=== PATIENT | female | born 1980 | race Hispanic/Latino ===

== ENCOUNTER 2017-11-20 05:02 | Emergency (ER) | payer BC, OTHER | END 2017-11-20 05:50 | disposition home or self-care (01) | LOC: EDH 05:02 | DX: S16.1XXA Strain of muscle, fascia and tendon at neck level, initial encounter (principal); E78.5 Hyperlipidemia, unspecified; X58.XXXA Exposure to other specified factors, initial encounter; Y93.89 Activity, other specified; Y92.89 Other specified places as the place of occurrence of the external cause; Y99.8 Other external cause status | CPT/HCPCS: 99281 ==

== ENCOUNTER → 2017-12-08 | Outpatient (CLI) | payer BC | END | disposition home or self-care (01) | LOC: RAH 12:12 | PROVIDERS: ATTEND Internal Medicine | DX: M50.122 Cervical disc disorder at C5-C6 level with radiculopathy (principal); M48.02 Spinal stenosis, cervical region; R29.898 Other symptoms and signs involving the musculoskeletal system | CPT/HCPCS: 72141 ==

== ENCOUNTER → 2018-08-27 | Outpatient (CLI) | payer BC | END | disposition home or self-care (01) | LOC: RAH 08:28 | PROVIDERS: ATTEND Internal Medicine | DX: R10.13 Epigastric pain (principal) | CPT/HCPCS: 76700 ==

== ENCOUNTER 2020-10-09 13:00 | Observation (INO) | payer BC ==
[~2020-10-09] VITALS: Ht 162.6 cm; Wt 75.7 kg
[2020-10-15] MEDS ORDERED: krill oil PO (12:11)
[2020-10-15] MEDS ORDERED: vitamin d3 PO (12:11)
[2020-10-15 12:28] LABS: BASOPHILS % (AUTO) 1.1 % (0.0-5.0); HEMATOCRIT 37.7 % (36-48); LYMPHOCYTES % (AUTO) 29.4 % (21.0-51.0); MEAN CORPUSCULAR HEMOGLOBIN 30.8 pg (27.0-33.0); MEAN CORPUSCULAR HGB CONC 34.7 g/dL (32.0-36.0); MEAN CORPUSCULAR VOLUME 88.5 fL (79-99); MONOCYTES % (AUTO) 5.7 % (3.0-13.0); NEUTROPHILS % (AUTO) 61.6 % (40.0-77.0); PLATELET COUNT (AUTO) 324 K/uL (130-400); RED BLOOD CELL COUNT(AUTO) 4.26 MIL/uL (4.00-5.50); RED CELL DISTRIBUTION WIDTH 11.9 % (11.0-15.5); WHITE BLOOD COUNT (AUTO) 5.4 K/uL (4.8-10.8)
[2020-10-16] VITALS (25 sets, daily range): BP systolic 114–162; BP diastolic 64–98
[2020-10-16] MEDS ORDERED: LACTATED RINGERS 1000ML 1,000 ML IV ONE (05:52)
[2020-10-16] MEDS: CEFAZOLIN SODIUM 1 GM VIAL ONE ×2 (05:57→07:08)
[2020-10-16] MEDS ORDERED: SUCCINYLCHOLINE CHLORIDE 20 MG/ML 10 ML VIAL ONE (06:40)
[2020-10-16] MEDS ORDERED: LIDOCAINE HCL MPF 1% 5ML VIAL ONE (06:40)
[2020-10-16] MEDS ORDERED: FENTANYL CITRATE PF 50 MCG/1 ML 2ML VIAL ONE ×2 (06:41→07:15)
[2020-10-16] MEDS ORDERED: ROCURONIUM 10MG/1ML SYR 10 MG/ML ML ONE ×3 (06:41→07:29)
[2020-10-16] MEDS ORDERED: MIDAZOLAM HCL 1 MG/ML 2ML VIAL ONE (06:41)
[2020-10-16] MEDS ORDERED: PROPOFOL 10 MG/ML 20ML VIAL IV ONE (06:41)
[2020-10-16] MEDS ORDERED: DEXAMETHASONE SOD PHOSPHATE 4 MG/ML 1ML VIAL ONE (08:26)
[2020-10-16] MEDS ORDERED: ONDANSETRON HCL 4 MG/2 ML VIAL ONE (08:26)
[2020-10-16] MEDS ORDERED: MEPERIDINE-PF 25 MG/ML SYG ONE ×2 (09:01→09:12)
[2020-10-16] MEDS ORDERED: IBUPROFEN 600 MG TABLET PO PRN (09:45)
[2020-10-16] MEDS ORDERED: BISACODYL 10 MG SUPP.RECT RC PRN (09:45)
[2020-10-16] MEDS ORDERED: PROMETHAZINE HCL 25 MG/ML 1ML AMPULE IM PRN (09:45)
[2020-10-16] MEDS ORDERED: ONDANSETRON HCL 4 MG/2 ML VIAL IVP PRN (09:45)
[2020-10-16] MEDS: MEPERIDINE-PF 75 MG/ML SYG IM PRN ×3 (09:54→17:33)
[2020-10-16] MEDS: DEXTROSE 5 %-0.45 % NACL 1,000 ML IV PRN ×2 (09:55→17:32)
[2020-10-16] MEDS: PROMETHAZINE HCL 25 MG/ML 1ML AMPULE IM PRN ×3 (09:55→17:33)
[2020-10-16] MEDS: DOCUSATE SODIUM 100 MG CAP PO PRN (20:29)
[2020-10-16] MEDS: SIMETHICONE 80 MG TAB.CHEW PO PRN (20:29)
[2020-10-16] MEDS: ACETAMINOPHEN-CODEINE 300/30MG TAB PO PRN (20:32)
[2020-10-17] MEDS ORDERED: MEPERIDINE-PF 50 MG/ML SYG ONE (01:18)
[2020-10-17] MEDS ORDERED: MEPERIDINE-PF 25 MG/ML SYG ONE (01:19)
[2020-10-17] MEDS: PROMETHAZINE HCL 25 MG/ML 1ML AMPULE IM PRN (01:22)
[2020-10-17] MEDS: DEXTROSE 5 %-0.45 % NACL 1,000 ML IV PRN (01:32)
[2020-10-17 03:50] VITALS: BP 135/75
[2020-10-17 05:38] LABS: HEMATOCRIT 35.3 % (36-48); MEAN CORPUSCULAR HEMOGLOBIN 30.4 pg (27.0-33.0); MEAN CORPUSCULAR HGB CONC 34.6 g/dL (32.0-36.0); RED BLOOD CELL COUNT(AUTO) 4.01 MIL/uL (4.00-5.50); RED CELL DISTRIBUTION WIDTH 11.9 % (11.0-15.5); WHITE BLOOD COUNT (AUTO) 9.7 K/uL (4.8-10.8)
[2020-10-17 07:19] VITALS: BP 161/80
[2020-10-17] MEDS ORDERED: ACETAMINOPHEN-CODEINE 300/30MG TAB PO PRN (09:00)
[2020-10-17] MEDS ORDERED: HYDROCODONE/ACETAMINOPHEN 5/325 MG TAB PO PRN (09:00)
[2020-10-17] MEDS ORDERED: IBUPROFEN 800 MG TAB PO PRN (09:00)
[2020-10-17] MEDS: ACETAMINOPHEN-CODEINE 300/30MG TAB PO PRN (09:08)
[2020-10-17] MEDS: DOCUSATE SODIUM 100 MG CAP PO PRN (09:08)
[2020-10-17] MEDS: SIMETHICONE 80 MG TAB.CHEW PO PRN (09:08)
[2020-10-17] MEDS ORDERED: ACET1TAB25 PO (10:27)
== END 2020-10-17 14:25 | disposition home or self-care (01) ==
LOC: EDSTATUS 13:00 → DAHIP 10-16 05:30 → WSH 10-16 09:40
PROVIDERS: ADMIT Obstetrics & Gynecology; ATTEND Obstetrics & Gynecology
DX: D25.9 Leiomyoma of uterus, unspecified (principal); Z20.822 Contact with and (suspected) exposure to COVID-19
CPT/HCPCS: 36415 ×2; 58292; 84703; 85025; 85027; 86850; 86900; 86901; 96360; 96361 ×2; 96372 ×2; A4215; A4221; A4222; A4223; A4351; A4600; A4606; A4663; A4930; G0378 ×31; J0330; J0690; J1100; J2175 ×7; J2250; J2405; J2550 ×4; J2704; J3010 ×2; J3490; J7120 ×2; U0003

== ENCOUNTER → 2023-02-05 | Outpatient (CLI) | payer BC ==
[~2023-02-05] MED LIST: ACET-2079 PO; krill oil PO; vitamin d3 PO
== END | disposition home or self-care (01) ==
LOC: RAH 12:46
PROVIDERS: ATTEND Internal Medicine
DX: M47.22 Other spondylosis with radiculopathy, cervical region (principal); M48.02 Spinal stenosis, cervical region; M50.122 Cervical disc disorder at C5-C6 level with radiculopathy; G95.9 Disease of spinal cord, unspecified
CPT/HCPCS: 72141

== ENCOUNTER 2025-05-01 08:53 | Observation (INO) | payer BC ==
[~2025-05-01] VITALS: Ht 162.6 cm; Wt 75.9 kg
[2025-05-01] VITALS (11 sets, daily range): BP systolic 119–141; BP diastolic 65–80; PULSE 56–74; RESP 15–17; TEMP 97.6–98.3; O2SAT 96
--- NOTE | 2025-05-01 09:24 | ERN ---
General Chief Complaint: Abdominal Pain Stated Complaint: RLQ PAIN Time Seen by MD: 09:50 History of Present Illness Initial Comments This is 44-year-old female who presented to ED with chief complaints of severe pain in abdomen. Patient says that the pain started on Thursday and has been gradually increasing, describes the pain as sharp and rates pain 9/10. She was admitted to this facility in August for pancreatitis due to hypertriglyceridemia. She denies chest pain, shortness of breath, nausea, vomiting. Allergies: Coded Allergies: No Known Allergies (Unverified Allergy, Unknown, 10/15/20) Home Meds Reported Medications [Pregnenolone 30 Mg] No Conflict Check, 1 CAP PO HS 05/01/25 Baclofen (Baclofen) 10 Mg Tablet, 10 MG PO DAILY PRN for NEEDED, TAB 05/01/25 Plecanatide (Trulance) 3 Mg Tablet, 3 MG PO DAILY PRN for CONSTIPATION , TAB 05/01/25 Losartan Potassium (Losartan Potassium) 25 Mg Tablet, 25 MG PO DAILY, TAB 05/01/25 Sumatriptan Succinate (Sumatriptan Succinate) 100 Mg Tablet, 100 MG PO DAILY PRN for MIGRAINES, TAB 05/01/25 [Zenpep [id number] Nt Cap ] No Conflict Check, 1 CAP PO TID 05/01/25 Fenofibrate Nanocrystallized (Fenofibrate) 145 Mg Tablet, 145 MG PO DAILY, TAB 05/01/25 Pantoprazole Sodium (Pantoprazole Sodium) 40 Mg Tablet.dr, 40 MG PO DAILY, TAB 05/01/25 Metoprolol Tartrate (Metoprolol Tartrate) 25 Mg Tablet, 25 MG PO TID, TAB 05/01/25 Past Medical History Past Medical History: High Cholesterol, Pancreatitis Past Surgical History: Hysterectomy Female( History) History: Not Applicable Respiratory: (-) cough, (-) orthopnea, (-) short of breath, (-) stridor, (-) wheezing, (-) other documentation Cardiovascular: (-) chest pain, (-) edema, (-) palpitations, (-) syncope, (-) dyspnea on exertion, (-) other documentation Gastrointestinal/Abdominal: (+) abdominal pain Physical Exam General Appearance: (+) no apparent distress; (-) apparent distress, (-) mild distress, (-) moderate distress, (-) severe distress, (-) thin, (-) obese, (-) combative, (-) cachetic, (-) anxious, (-) other documentation Orientation: (+) alert, (+) oriented x 3; (-) disoriented, (-) other documentation Head/Face Trauma: No Respiratory: (+) chest non-tender, (+) lungs clear, (+) well ventilated; (-) decreased breath sounds, (-) retractions, (-) abnormal breath sound, (-) crackles, (-) plerual rub, (-) rales, (-) rhonchi, (-) stridor, (-) wheezing, (- ) other documentation Heart: (+) regular, (+) no gallop; (-) murmur, (-) irregular, (-) bradycardia, (-) tachycardia, (-) systolic murmur, (-) diastolic murmur, (-) extra beats, (-) friction rub, (-) gallop/S3, (-) gallop/S4, (-) other documentation Gastrointestinal: (+) soft, (+) tender Results Laboratory and Microbiology Lab and Micro Result Laboratory Tests Test 05/01/25 09:27 05/01/25 09:39 White Blood Count 11.7 K/uL (4.8-10.8) H Red Blood Count 4.23 MIL/uL (4.00-5.50) Hemoglobin 12.7 g/dL (12.0-16.0) Hematocrit 37.6 % (36-48) Mean Corpuscular Volume 88.9 fL (79-99) Mean Corpuscular Hemoglobin 30.0 pg (27.0-33.0) Mean Corpuscular Hemoglobin Concent 33.8 g/dL (32.0-36.0) Red Cell Distribution Width 11.9 % (11.0-15.5) Platelet Count 307 K/uL (130-400) Mean Platelet Volume 10.6 fL (7.5-10.5) H Immature Granulocyte % (Auto) 0.3 % (0-1) Neutrophils (%) (Auto) 78.4 % (40.0-77.0) H Lymphocytes (%) (Auto) 15.2 % (21.0-51.0) L Monocytes (%) (Auto) 4.7 % (3.0-13.0) Eosinophils (%) (Auto) 1.1 % (0.0-8.0) Basophils (%) (Auto) 0.3 % (0.0-5.0) Neutrophils # (Auto) 9.2 K/uL (1.8-7.7) H Lymphocytes # (Auto) 1.8 K/uL (1.0-4.8) Monocytes # (Auto) 0.6 K/uL (0.1-1.0) Eosinophils # (Auto) 0.13 K/uL (0.00-0.70) Basophils # (Auto) 0.04 K/uL (0.00-0.20) Absolute Immature Granulocyte (auto 0.03 K/uL (0-1) Nucleated Red Blood Cells 0.0 % (0.0-0.19) Sodium Level 137 mmol/L (136-145) Potassium Level 4.2 mmol/L (3.5-5.1) Chloride Level 101 mmol/L (101-111) Carbon Dioxide Level 27 mmol/L (21-32) Blood Urea Nitrogen 14 mg/dL (7-18) Creatinine 0.8 mg/dL (0.5-1.0) Glomerular Filtration Rate Calc 92 mL/min (>90) Random Glucose 102 mg/dL (70-105) Total Calcium 9.5 mg/dL (8.5-10.1) Total Bilirubin 0.5 mg/dL (0.2-1.0) Aspartate Amino Transf (AST/SGOT) 12 U/L (10-37) Alanine Aminotransferase (ALT/SGPT) 20 U/L (12-78) Alkaline Phosphatase 69 U/L (50-136) Total Protein 8.2 g/dL (6.0-8.3) Albumin 4.1 g/dL (3.5-5.0) Lipase 28 U/L (16-77) Urine Color YELLOW (YELLOW) Urine Appearance CLOUDY (CLEAR) H Urine pH 5.0 (5.0-8.0) Urine Specific [place] 1.031 (1.001-1.031) Urine Protein NEGATIVE mg/dL (NEGATIVE) Urine Glucose (UA) NEGATIVE mg/dL (NEGATIVE) Urine Ketones NEGATIVE mg/dL (NEGATIVE) Urine Occult Blood NEGATIVE (NEGATIVE) Urine Nitrate NEGATIVE (NEGATIVE) Urine Bilirubin NEGATIVE mg/dL (NEGATIVE) Urine Urobilinogen 0.2 mg/dL (0.2-1.0) Urine Leukocyte Esterase NEGATIVE [place]/uL Urine RBC 2-5 /HPF (0-1) H Urine WBC 2-5 /HPF (0-1) H Urine Squamous Epithelial Cells MOD /HPF (0-2) Urine Calcium Oxalate Crystals FEW /LPF (None Seen) Urine Bacteria RARE /HPF (None Seen) EKG/XRAY/US/CT/MRI CT Scan Comment [facility] [address] [place] [address] IMAGING REPORT Signed PATIENT: DEYA MONTOYA MR#: [id number] : 1980 SEX: F AGE: 44 LOCATION: [facility] ORDER 3 STATUS: [facility] REPORT#: [id number] SERVICE 9 REASON: pain and tenderness in right iliac region ORDERING PHYSICIAN: VIVIANE ALBERTO MD PROCEDURE: ABD PEL W - CT ABDOMEN/PELVIS W/CONTRAST EXAM: CT Abdomen and Pelvis with IV contrast CLINICAL HISTORY: pain and tenderness in right iliac region TECHNIQUE: Axial computed tomography images of the abdomen and pelvis with intravenous contrast. CONTRAST: with intravenous contrast. COMPARISON: Study dated 08/18. FINDINGS: LUNG BASES: The lung bases appear clear. No pleural effusions are seen. LIVER: The liver is enlarged, and the right lobe of the liver measures 19.2 cm. GALLBLADDER AND BILE DUCTS: The gallbladder appears within normal limits. No radioopaque gallstones are seen. No biliary ductal dilatation is evident. PANCREAS: Unremarkable. SPLEEN: Unremarkable. ADRENAL GLANDS: Unremarkable. KIDNEYS, URETERS, AND BLADDER: A few tiny cysts in the left kidney. The kidneys appear within normal limits. There is no hydronephrosis or hydroureter. No urinary calculi are seen. STOMACH AND BOWEL: There is circumferential edematous wall thickening in the cecum, ileocecal junction, and terminal ileum with significant surrounding fat stranding. There is an impacted fecolith measuring 1.7 x 1.6 cm in the ileo-cecal junction. The appendix is not well visualized. No evidence of bowel obstruction. PERITONEUM: Mild free fluid. No free air. LYMPH NODES: A few subcentimetric-sized lymph nodes in the right iliac fossa region. A necrotic node measuring 1.6 x 1.4 cm in the left lumbar region. REPRODUCTIVE: Unremarkable as visualized. VASCULATURE: No evidence of abdominal aortic aneurysm. BONES: No aggressively appearing osseous lesion. No acute osseous pathology evident. IMPRESSION: 1. Cecal, ileocecal junction, and terminal ileum wall thickening with surrounding fat stranding and a 1.7 x 1.6 cm impacted fecolith in the ileo-cecal junction, suggestive of ileocolitis. 2. 1.6 x 1.4 cm necrotic lymph node in the left lumbar region. 3. Mild free fluid in the peritoneum. 4. Hepatomegaly. /[place] DICTATED BY: MARELY DAY Jr., MD DATE: 05/01/25 134 ELECTRONICALLY SIGNED BY: MARELY DAY Jr., MD DATE: 05/01/25 1343 [facility] MDM: Differential diagnosis: ACUTE APPENDICITIS/ACUTE DIVERTICULITIS/PANCREATITIS Patient is 44-year-old female who presented to ED with chief complaints of severe pain in abdomen started 4 days back. She says that the pain is sharp and constant, she rates pain 9/10. She denies chest pain, palpitations, shortness of breath, nausea and vomiting. We ordered CBC, CMP, lipase, urinalysis, CT abdomen pelvis with contrast. Her CBC, CMP, lipase, urinalysis for unremarkable except for elevations in WBC count. CT abdomen pelvis with contrast showed ce rfuus, ileocecal junction, and terminal ileum wall thickening with surrounding fat stranding and a 1.7 x 1.6 cm impacted fecalith in the ileocecal junction, suggestive of ileocolitis. Patient is put on NPO, started IV Zosyn, IV fluids, pain medication. ED Course Orders Procedure Category Date Status Time Cbc With Differential LAB 05/01/25 Complete 09:10 Comprehensive LAB 05/01/25 Complete Metabolic Panel 09:10 Lipase LAB 05/01/25 Complete 09:10 Ketorolac PHA 05/01/25 Complete Tromethamine 15mg/Ml 09:30 Urinalysis Profile LAB 05/01/25 Complete 09:37 Iohexol (Omnipaque) PHA 05/01/25 Complete 11:08 Ct Abdomen/Pelvis CT 05/01/25 Resulted W/Contrast 09:10 Ketorolac PHA 05/01/25 Complete Tromethamine 15mg/Ml 12:00 Zosyn 3.375gm+Ns 50ml PHA 05/01/25 In Process (Zosyn 3.375gm+Ns 13:00 Nothing By Mouth DIET 05/01/25 Complete Lunch Lactated Ringers PHA 05/01/25 Complete 1000ml (Lactated 13:00 Lactated Ringers PHA 05/01/25 Complete 1000ml (Lactated 13:00 Current Medications Medications (Trade) Dose Ordered Sig/Aurelio Route PRN Reason Start Time Stop Time Status Last Admin Dose Admin Iohexol (Omnipaque) 75 ml STK-MED ONCE IV 05/01/25 11:08 05/01/25 11:08 DC Ketorolac Tromethamine (toRADol) 15 mg ONCE ONCE IM 05/01/25 09:30 05/01/25 11:26 DC Ketorolac Tromethamine (toRADol) 15 mg ONCE ONCE IV 05/01/25 12:00 05/01/25 12:01 DC 05/01/25 11:41 Lactated Ringer's 1,000 ml @ 0 mls/hr ONCE ONCE IV 05/01/25 13:00 05/01/25 13:03 DC 05/01/25 13:25 Lactated Ringer's 1,000 ml @ 125 mls/hr ONCE ONCE IV 05/01/25 13:00 05/01/25 20:59 DC Piperacillin Sod/ Tazobactam Sod (Zosyn 3.375gm+NS 50ml) 3.375 gm Q8H IV 05/01/25 13:00 05/11/25 12:59 05/02/25 04:23 Vital Signs Date Time Temp Pulse Resp B/P (MAP) Pulse Ox O2 Delivery O2 Flow Rate FiO2 05/01/25 08:54 98.8 105 16 148/87 96 Room Air 0 DX & DISP Disposition: Inpatient Departure Impression: Primary Impression: Ileocolitis Condition: Stable Referrals: KAYLEN CALVIN MD (PCP) I performed a substantive portion of the visit. I have reviewed and personally made and approve the management plan that is documented in the notes by myself with GT/resident. I acknowledged full responsibility for the patient's management plan. 44-year-old with right lower quadrant pain. CT scan shows an appendicolith and some stranding near the appendix. Possibly an early appendicitis versus other. Given IV fluids, NPO, IV antibiotics. Surgery consulted. Admitted. VIVIANE ALBERTO MD May 01, 2025 09:24 ABRAHAM SANTIAGO DO May 02, 2025 17:04
[2025-05-01 09:37] LABS: IMMATURE GRANULOCYTE ABSOLUTE 0.03 K/uL (0-1); NUCLEATED RED BLOOD CELLS 0.0 % (0.0-0.19); PLATELET COUNT (AUTO) 307 K/uL (130-400); RED BLOOD CELL COUNT(AUTO) 4.23 MIL/uL (4.00-5.50); RED CELL DISTRIBUTION WIDTH 11.9 % (11.0-15.5); WHITE BLOOD COUNT (AUTO) 11.7 K/uL (4.8-10.8)
[2025-05-01 09:45] LABS: CREATININE 0.8 mg/dL (0.5-1.0); GLOMERULAR FILTR. RATE CALC 92.0 mL/min (>90); GLUCOSE,RANDOM 102.0 mg/dL (70-105); SODIUM SERUM 137.0 mmol/L (136-145); UREA NITROGEN, BLOOD 14.0 mg/dL (7-18)
[2025-05-01 09:49] LABS: ASPARTATE AMINOTRANSFERASE 12.0 U/L (10-37); TOTAL PROTEIN, SERUM 8.2 g/dL (6.0-8.3)
[2025-05-01 10:53] LABS: APPEARANCE,URINE CLOUDY (CLEAR); GLUCOSE, URINE (UA) NEGATIVE (NEGATIVE); LEUKOCYTE ESTERASE ,URINE NEGATIVE Leu/uL (NEGATIVE); NITRATE,URINE NEGATIVE (NEGATIVE); OCCULT BLOOD,URINE NEGATIVE (NEGATIVE)
[2025-05-01] MEDS ORDERED: IOHEXOL-350 75 ML VIAL IV ONE (11:08)
[2025-05-01 11:21] LABS: ADD UA MICROSCOPIC YES
[2025-05-01 11:22] LABS: CALCIUM OXALATE CRYSTALS,UR FEW /LPF (None Seen); SQUAMOUS EPITHELIAL CELL,UR MOD /HPF (0-2)
--- NOTE | 2025-05-01 12:43 | HMCIMG ---
EXAM: CT Abdomen and Pelvis with IV contrast CLINICAL HISTORY: pain and tenderness in right iliac region TECHNIQUE: Axial computed tomography images of the abdomen and pelvis with intravenous contrast. CONTRAST: with intravenous contrast. COMPARISON: Study dated 08/18. FINDINGS: LUNG BASES: The lung bases appear clear. No pleural effusions are seen. LIVER: The liver is enlarged, and the right lobe of the liver measures 19.2 cm. GALLBLADDER AND BILE DUCTS: The gallbladder appears within normal limits. No radioopaque gallstones are seen. No biliary ductal dilatation is evident. PANCREAS: Unremarkable. SPLEEN: Unremarkable. ADRENAL GLANDS: Unremarkable. KIDNEYS, URETERS, AND BLADDER: A few tiny cysts in the left kidney. The kidneys appear within normal limits. There is no hydronephrosis or hydroureter. No urinary calculi are seen. STOMACH AND BOWEL: There is circumferential edematous wall thickening in the cecum, ileocecal junction, and terminal ileum with significant surrounding fat stranding. There is an impacted fecolith measuring 1.7 x 1.6 cm in the ileo-cecal junction. The appendix is not well visualized. No evidence of bowel obstruction. PERITONEUM: Mild free fluid. No free air. LYMPH NODES: A few subcentimetric-sized lymph nodes in the right iliac fossa region. A necrotic node measuring 1.6 x 1.4 cm in the left lumbar region. REPRODUCTIVE: Unremarkable as visualized. VASCULATURE: No evidence of abdominal aortic aneurysm. BONES: No aggressively appearing osseous lesion. No acute osseous pathology evident. IMPRESSION: 1. Cecal, ileocecal junction, and terminal ileum wall thickening with surrounding fat stranding and a 1.7 x 1.6 cm impacted fecolith in the ileo-cecal junction, suggestive of ileocolitis. 2. 1.6 x 1.4 cm necrotic lymph node in the left lumbar region. 3. Mild free fluid in the peritoneum. 4. Hepatomegaly. /[place]
[2025-05-01] MEDS: ZOSYN 3.375GM +NS 50ML IV SCH (13:25)
[2025-05-01] MEDS: LACTATED RINGERS 1000ML 1,000 ML IV ONE ×2 (13:25→14:08)
[2025-05-01] MEDS ORDERED: ZOSYN 3.375GM +NS 50ML IVPB SCH (13:30)
[2025-05-01] MEDS ORDERED: PLEC3TAB2 PO (14:26)
[2025-05-01] MEDS ORDERED: METO25TA6 PO (14:26)
[2025-05-01] MEDS ORDERED: FENO145T26 PO (14:26)
[2025-05-01] MEDS ORDERED: LOSA25TA41 PO (14:26)
[2025-05-01] MEDS ORDERED: [UNRECOGNIZED DRUG - CODE] PO (14:26)
[2025-05-01] MEDS ORDERED: PANT40TA54 PO (14:26)
[2025-05-01] MEDS ORDERED: BACL10TA PO (14:26)
[2025-05-01] MEDS ORDERED: SUMA100T16 PO (14:26)
[2025-05-01] MEDS ORDERED: PREGNENOLONE PO (14:29)
--- NOTE | 2025-05-01 14:42 | NUR ---
DCP:HOME Pt currently lives at home with her parents. Pt does not have any DME, home health, or provider services. Pt states that she is able to complete ADLs independently. PCP is Dr. Espino and uses [facility] for any RX needs. At [place] pt will want to go home and pt drove herself to the hospital. Addendum: 05/01/25 at 1444 by ÁLVARO YOUNG SS Amended: Links added.
--- NOTE | 2025-05-01 14:55 | NUR ---
DR. CALVIN CALLED PRIMARY RN AT THIS TIME TO GIVE VERBAL ORDERS TO CONSULT GENERAL SURGEON DR. BLANTON, INFORMED MD THAT DR. BLANTON IS NOT CLINICAL QUALITY ASSURANCE SPECIALIST TODAY AND DR. ADAMES WAS MADE AWARE OF GEN SURG CONSULT. DR. CALVIN CONTINOUS TO BE ADAMENT TO HAVE DR. BLANTON CONSULTED AND HE WILL BE CALLING GEN SURG HIMSELF. PRIMARY RN CONFIRMED TELEPHONE ORDERS TO BE PLACED AT THIS TIME./[place]
--- NOTE | 2025-05-01 15:00 | NUR ---
DANNIELLE CITRUS PEELER AT BEDSIDE FOR GEN SURG, INFROMED HIM TO CANCEL CONSULT DUE TO ADMITTING MD REQUESTING DR. BLANTON./[place]
--- NOTE | 2025-05-01 16:22 | CONS ---
GENERAL SURGERY CONSULTATION NOTE Date/Time Patient Seen: [05/01/2025] Requesting Physician: [] Reason for Consultation: [RLQ abdominal pain, possible appendicitis] History of Present Illness: [Patient presented to this facility for evaluation of right lower quadrant abdominal pain. Patient states that 3 days ago she began to experience right lower quadrant abdominal pain that was intermittent and described as sharp. Patient reports the pain has been progressively worsening and taking pain medications has provided no relief. This prompted her to come to the ER for further evaluation. Patient states having a history of chronic constipation, and she thought this was the etiology of her abdominal pain therefore was taking Trulance and administering enemas which provided only mild relief. She reports not eating since 8PM yesterday due to the abdominal pain and has only been drinking water. Patient states having a prior similar episode, however this has been the worst one. Patient denies nausea vomiting, fever, chills, melena, hematochezia, and hematuria. She notes that prior to the onset of the symptoms, she was tolerating a regular diet. Her last bowel movement was this morning and she described it as normal in appearance. Laboratory review demonstrated a leukocytosis of 11.7. Patient has a surgical history of partial hysterectomy and colonoscopy.] Past Medical History: [Hyperlipidemia, pancreatitis, hypertriglyceridemia ] Past Surgical History: Partial hysterectomy, colonoscopy] Family History: [Unknown] Habits: [Never] smoker. [Denies] alcohol consumption. [Denies] illicit drug use Current Medications Medications (Trade) Dose Ordered Sig/Aurelio Route Start Time Stop Time Status Last Admin Dose Admin Dextrose/Sodium Chloride 1,000 ml @ 75 mls/hr [id number] IV 05/01/25 13:30 05/31/25 13:29 Piperacillin Sod/ Tazobactam Sod (Zosyn 3.375gm+NS 50ml) 3.375 gm Q8H IV 05/01/25 13:00 05/11/25 12:59 05/01/25 13:25 3.375 GM Piperacillin Sod/ Tazobactam Sod (Zosyn 3.375gm+NS 50ml) 3.375 gm Q8H IVPB 05/01/25 13:30 05/01/25 13:35 DC Sodium Chloride (NS 50ml) 50 ml AD IV 05/01/25 21:00 05/01/25 13:35 DC Review of Systems: 14 review of systems negative except for mentioned in the HPI Physical Examination: GENERAL: [No acute distress, nontoxic appearing] HEAD: [Normocephalic, atraumatic] EYES: [EOMI, conjunctiva and sclera white] ENT: [Hearing grossly intact, normal oropharynx] NECK: [Supple. No thyromegaly] LUNGS: [Unlabored] HEART: [Regular rate and rhythm] VASC: [No edema. Peripheral pulses normal and equal in all extremities] ABD: [Soft, tenderness to palpation to the right lower quadrant with guarding] LYMPH: [No lymphadenopathy noted] EXT: [Normal range of motion, no clubbing, cyanosis or edema] SKIN: [No rashes or lesions noted] NEURO: [Awake, alert, and oriented x3] Vital Signs (last 8hr) Date Time Temp Pulse Resp B/P (MAP) Pulse Ox O2 Delivery O2 Flow Rate FiO2 05/01/25 08:54 98.8 105 16 148/87 96 Room Air 0 Laboratory: [ ] Hematology Labs: Test 05/01/25 09:27 Range/Units White Blood Count 11.7 H 4.8-10.8 K/uL Red Blood Count 4.23 4.00-5.50 MIL/uL Hemoglobin 12.7 12.0-16.0 g/dL Hematocrit 37.6 36-48 % Mean Corpuscular Volume 88.9 79-99 fL Mean Corpuscular Hemoglobin 30.0 27.0-33.0 pg Mean Corpuscular Hemoglobin Concent 33.8 32.0-36.0 g/dL Red Cell Distribution Width 11.9 11.0-15.5 % Platelet Count 307 130-400 K/uL Mean Platelet Volume 10.6 H 7.5-10.5 fL Immature Granulocyte % (Auto) 0.3 0-1 % Neutrophils (%) (Auto) 78.4 H 40.0-77.0 % Lymphocytes (%) (Auto) 15.2 L 21.0-51.0 % Monocytes (%) (Auto) 4.7 3.0-13.0 % Eosinophils (%) (Auto) 1.1 0.0-8.0 % Basophils (%) (Auto) 0.3 0.0-5.0 % Neutrophils # (Auto) 9.2 H 1.8-7.7 K/uL Lymphocytes # (Auto) 1.8 1.0-4.8 K/uL Monocytes # (Auto) 0.6 0.1-1.0 K/uL Eosinophils # (Auto) 0.13 0.00-0.70 K/uL Basophils # (Auto) 0.04 0.00-0.20 K/uL Absolute Immature Granulocyte (auto 0.03 0-1 K/uL Nucleated Red Blood Cells 0.0 0.0-0.19 % Chemistry Labs: Test 05/01/25 09:27 Range/Units Sodium Level 137 136-145 mmol/L Potassium Level 4.2 3.5-5.1 mmol/L Chloride Level 101 101-111 mmol/L Carbon Dioxide Level 27 21-32 mmol/L Blood Urea Nitrogen 14 7-18 mg/dL Creatinine 0.8 0.5-1.0 mg/dL Glomerular Filtration Rate Calc 92 >90 mL/min Random Glucose 102 70-105 mg/dL Total Calcium 9.5 8.5-10.1 mg/dL Total Bilirubin 0.5 0.2-1.0 mg/dL Aspartate Amino Transf (AST/SGOT) 12 10-37 U/L Alanine Aminotransferase (ALT/SGPT) 20 12-78 U/L Alkaline Phosphatase 69 50-136 U/L Total Protein 8.2 6.0-8.3 g/dL Albumin 4.1 3.5-5.0 g/dL Lipase 28 16-77 U/L Diagnostics / Radiology: [EXAM: CT Abdomen and Pelvis with IV contrast CLINICAL HISTORY: pain and tenderness in right iliac region TECHNIQUE: Axial computed tomography images of the abdomen and pelvis with intravenous contrast. CONTRAST: with intravenous contrast. COMPARISON: Study dated 08/18. FINDINGS: LUNG BASES: The lung bases appear clear. No pleural effusions are seen. LIVER: The liver is enlarged, and the right lobe of the liver measures 19.2 cm. GALLBLADDER AND BILE DUCTS: The gallbladder appears within normal limits. No radioopaque gallstones are seen. No biliary ductal dilatation is evident. PANCREAS: Unremarkable. SPLEEN: Unremarkable. ADRENAL GLANDS: Unremarkable. KIDNEYS, URETERS, AND BLADDER: A few tiny cysts in the left kidney. The kidneys appear within normal limits. There is no hydronephrosis or hydroureter. No urinary calculi are seen. STOMACH AND BOWEL: There is circumferential edematous wall thickening in the cecum, ileocecal junction, and terminal ileum with significant surrounding fat stranding. There is an impacted fecolith measuring 1.7 x 1.6 cm in the ileo-cecal junction. The appendix is not well visualized. No evidence of bowel obstruction. PERITONEUM: Mild free fluid. No free air. LYMPH NODES: A few subcentimetric-sized lymph nodes in the right iliac fossa region. A necrotic node measuring 1.6 x 1.4 cm in the left lumbar region. REPRODUCTIVE: Unremarkable as visualized. VASCULATURE: No evidence of abdominal aortic aneurysm. BONES: No aggressively appearing osseous lesion. No acute osseous pathology evident. IMPRESSION: 1. Cecal, ileocecal junction, and terminal ileum wall thickening with surrounding fat stranding and a 1.7 x 1.6 cm impacted fecolith in the ileo-cecal junction, suggestive of ileocolitis. 2. 1.6 x 1.4 cm necrotic lymph node in the left lumbar region. 3. Mild free fluid in the peritoneum. 4. Hepatomegaly. /[place] Assessment: [Appendicitis] Plan: [Patient with right lower quadrant abdominal pain. CT of the abdomen and pelvis was personally reviewed by Dr. Atkins and I which demonstrated fecalith in the ileo-cecal as well as fat stranding surrounding the cecum which is in an early sign of appendicitis. Plan is for laparoscopic appendectomy, possible open and associated procedures in the OR today. Risks associated with the procedure including but not limited to infection, bleeding, and injury to surrounding structures were discussed with the patient in detail. Patient verbalized understanding and agrees with the plan. ] The assessment and plan was discussed with my attending physician, Dr. Atkins. Patient is seen and examined on May 01, 2025. Patient with a undulating pain in the right lower quadrant. Pain progressively got worse today. Due to the increasing amount of discomfort patient came in the emergency room. Prior to onset of his symptoms patient was tolerating a regular diet, having regular bowel function. Patient denies any melena, hematochezia, hematuria. A CT scan was done during admission. I personally reviewed the CT scan. Patient has a large fecalith at the junction of the cecum and the ileocecal valve. However on my personal review of the it appears the fecalith just distal to the ileocecal bowel. This could be within a appendix that is called onto the cecum. I am not tissue. But patient does have significant amount of stranding around the cecum. Had long talk with the patient and the patient's primary care physician about this patient. I think an exploratory laparoscopy with possible appendectomy is warranted. Risks associated with the procedure not limited to infection, bleeding, injury to surrounding structures has been discussed with the patient and she indicates she understands and would like to proceed. I personally discussed the patient with my PA and agree with my PA note above. LEESA LIZARRAGA May 01, 2025 16:22 JANNET ATKINS MD May 01, 2025 16:57
[2025-05-01] MEDS ORDERED: SUCCINYLCHOLINE CHLORIDE 20 MG/ML 10 ML VIAL ONE (17:09)
[2025-05-01] MEDS ORDERED: LIDOCAINE PF 100MG/5ML (2%) SYRINGE 5ML ONE (17:09)
[2025-05-01] MEDS ORDERED: MIDAZOLAM HCL 1 MG/ML 2ML VIAL ONE (17:10)
--- NOTE | 2025-05-01 18:14 | NUR ---
REPORT GIVEN TO NURSE KALPESH
--- NOTE | 2025-05-01 18:19 | OP ---
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 Patient was brought back to operating room. Positioned in the supine position. Preoperative antibiotics were given. Bilateral SCDs were placed. Patient was intubated. Patient then was prepped and draped the usual fashion. Skin inci cisco was made in the umbilicus. Dissection down to an umbilical defect was done with two curved clamps. 5 mm trocars inserted under direct vision. Abdomen was insufflated to 15 mm Hg. No injury to omentum bowel was noted. Then a 5 mm ports placed in suprapubic region, a 12 mm port was placed in the left lateral abdomen. Of immediate note there was significant amount of adhesions to the abdomen. Careful sharp enterolysis was then undertaken to free up the omentum from the colon in his well as free up the multiple intra-loop adhesions of the small bowel and the colon from itself. Sharp enterolysis took approximately 45 minutes. This included freeing up the small bowel from itself as well as ring of the cecum and ascending colon from itself. The white line of Toldt was also mobilized to fully mobilize the right colon to allow visualization of the colon from the retroperitoneal approach. Once all of this was done the large appendix with a appeared to be in the cecum itself and not within the appendix. Once this was done an atrophied appendix was visualized. The large appendicolith appeared to be in the cecum itself. The atrophied appendix was grasped and elevated and the atrophied appendix was then transected with the Endo-KRISTY stapler. Then the abdomen was further evaluated. The abdomen was copiously irrigated. All irrigation was removed. Appropriate hemostasis was observed. Then all insufflation gas was removed. Ports were removed. Local anesthetic was instilled into the incisions and the incisions were closed in subcuticular fashion appropriate dress. Patient has woken up, transferred to a stretcher, taken to recovery room to recovery. All sponges and instruments were accounted for at the end the case. Patient tolerated the procedure well, there no complications.] JANNET GREER MD May 01, 2025 18:19
[2025-05-01] MEDS ORDERED: GLYCOPYRROLATE 0.2 MG/ML 5 ML VIAL ONE (18:23)
[2025-05-01] MEDS ORDERED: NEOSTIGMINE METHYLSULFATE 1MG/ML IV ONE (18:23)
[2025-05-01] MEDS: DEXTROSE 5 %-0.45 % NACL 1,000 ML IV SCH (19:55)
[2025-05-01] MEDS ORDERED: 0.9%NACL 50ML IV SCH (21:00)
[2025-05-01] MEDS: LACTULOSE 20 GM/30 ML UDCUP PO ONE (22:01)
[2025-05-01] MEDS: MAGNESIUM HYDROXIDE 30 ML/UDCUP PO ONE (22:01)
[2025-05-02] VITALS (8 sets, daily range): BP systolic 111–138; BP diastolic 62–84; PULSE 62–107; RESP 16–18; TEMP 97.7–98.1; O2SAT 98
[2025-05-02] MEDS ORDERED: NA BORATE/BORIC AC/H2O/NACL 120 ML OPHTH IRRIG SOLN OP PRN
--- NOTE | 2025-05-02 07:25 | PN ---
GENERAL SURGERY PROGRESS NOTE Date/Time Patient Seen: [05/02/2025 ] Problem List: [ Abdominal pain] Interval History: [Patient is postop day #1 after undergoing a laparoscopic enterolysis for approximately 45 minutes with excisional biopsy of atrophic appendix. Patient was evaluated at bedside this morning. No acute overnight events were reported by the patient's nurse. Patient states her pain has been well-controlled with the current pain medication. Patient states passing flatus and tolerating her clear liquid diet. Pending bowel movement. Patient was informed that she has to walk in the hallways at least 20-40 times per day and use her I/S at least 10 times per hour. ] Current Medications Medications (Trade) Dose Ordered Sig/Aurelio Route Start Time Stop Time Status Last Admin Dose Admin Dextrose/Sodium Chloride 1,000 ml @ 75 mls/hr [id number] IV 05/01/25 13:30 05/31/25 13:29 05/02/25 04:23 75 MLS/HR Gabapentin (NEURontin 100 mg CAP) 100 mg TID PO 05/01/25 21:00 05/31/25 20:59 05/01/25 22:02 100 MG Methocarbamol (methoCARBamol) 500 mg TID PO 05/01/25 21:00 05/31/25 20:59 05/01/25 22:02 500 MG Piperacillin Sod/ Tazobactam Sod (Zosyn 3.375gm+NS 50ml) 3.375 gm Q8H IV 05/01/25 13:00 05/11/25 12:59 05/02/25 04:23 3.375 GM Piperacillin Sod/ Tazobactam Sod (Zosyn 3.375gm+NS 50ml) 3.375 gm Q8H IVPB 05/01/25 13:30 05/01/25 13:35 DC Sodium Chloride (NS 50ml) 50 ml AD IV 05/01/25 21:00 05/01/25 13:35 DC Physical Examination: Awake, alert, oriented x3 Regular rate and rhythm Unlabored breathing _Abd soft with incisions appearing clean and dry Vital Signs (last 8hr) Date Time Temp Pulse Resp B/P (MAP) Pulse Ox O2 Delivery O2 Flow Rate FiO2 05/02/25 06:38 107 125/64 05/02/25 06:37 95 111/62 05/02/25 06:37 89 120/63 05/02/25 04:00 98.1 78 16 119/65 93 Room Air 05/02/25 00:00 97.9 62 16 138/84 94 Room Air Laboratory: [ ] Hematology Labs: Test 05/01/25 09:27 Range/Units White Blood Count 11.7 H 4.8-10.8 K/uL Red Blood Count 4.23 4.00-5.50 MIL/uL Hemoglobin 12.7 12.0-16.0 g/dL Hematocrit 37.6 36-48 % Mean Corpuscular Volume 88.9 79-99 fL Mean Corpuscular Hemoglobin 30.0 27.0-33.0 pg Mean Corpuscular Hemoglobin Concent 33.8 32.0-36.0 g/dL Red Cell Distribution Width 11.9 11.0-15.5 % Platelet Count 307 130-400 K/uL Mean Platelet Volume 10.6 H 7.5-10.5 fL Immature Granulocyte % (Auto) 0.3 0-1 % Neutrophils (%) (Auto) 78.4 H 40.0-77.0 % Lymphocytes (%) (Auto) 15.2 L 21.0-51.0 % Monocytes (%) (Auto) 4.7 3.0-13.0 % Eosinophils (%) (Auto) 1.1 0.0-8.0 % Basophils (%) (Auto) 0.3 0.0-5.0 % Neutrophils # (Auto) 9.2 H 1.8-7.7 K/uL Lymphocytes # (Auto) 1.8 1.0-4.8 K/uL Monocytes # (Auto) 0.6 0.1-1.0 K/uL Eosinophils # (Auto) 0.13 0.00-0.70 K/uL Basophils # (Auto) 0.04 0.00-0.20 K/uL Absolute Immature Granulocyte (auto 0.03 0-1 K/uL Nucleated Red Blood Cells 0.0 0.0-0.19 % Chemistry Labs: Test 05/01/25 09:27 Range/Units Sodium Level 137 136-145 mmol/L Potassium Level 4.2 3.5-5.1 mmol/L Chloride Level 101 101-111 mmol/L Carbon Dioxide Level 27 21-32 mmol/L Blood Urea Nitrogen 14 7-18 mg/dL Creatinine 0.8 0.5-1.0 mg/dL Glomerular Filtration Rate Calc 92 >90 mL/min Random Glucose 102 70-105 mg/dL Total Calcium 9.5 8.5-10.1 mg/dL Total Bilirubin 0.5 0.2-1.0 mg/dL Aspartate Amino Transf (AST/SGOT) 12 10-37 U/L Alanine Aminotransferase (ALT/SGPT) 20 12-78 U/L Alkaline Phosphatase 69 50-136 U/L Total Protein 8.2 6.0-8.3 g/dL Albumin 4.1 3.5-5.0 g/dL Lipase 28 16-77 U/L Diagnostics / Radiology: [Copy/Paste Echos/Imaging Report here] Impression and Plan: [Patient is doing well post surgery. Patient will be advanced to a full liquid diet. Continue with pain medication regimen. Ambulate. Pulmonary toilet. If patient's pain is well tolerated with oral pain medication, from surgical standpoint she can be discharged home. She is to follow up in our office in 2 weeks.] Above patient's assessment and plan was discussed with my attending physician, Dr. Atkins. Patient is doing well. Pain is Controlled. Tolerating a diet. Patient can be discharged home. Patient to follow up with me two weeks. I discussed the pt with my PA and agree with my PA's note above LEESA LIZARRAGA May 02, 2025 07:25 JANNET ATKINS MD May 02, 2025 16:10
[2025-05-02] MEDS: MAGNESIUM HYDROXIDE 30 ML/UDCUP PO ONE (10:20)
[2025-05-02] MEDS: LACTULOSE 20 GM/30 ML UDCUP PO ONE (10:20)
[2025-05-02 16:48] LABS: NUCLEATED RED BLOOD CELLS 0.0 % (0.0-0.19); PLATELET COUNT (AUTO) 321.0 K/uL (130-400); RED BLOOD CELL COUNT(AUTO) 3.9 MIL/uL (4.00-5.50); RED CELL DISTRIBUTION WIDTH 11.9 % (11.0-15.5); WHITE BLOOD COUNT (AUTO) 11.2 K/uL (4.8-10.8)
[2025-05-02 17:06] LABS: ASPARTATE AMINOTRANSFERASE 13.0 U/L (10-37); CREATININE 0.8 mg/dL (0.5-1.0); GLOMERULAR FILTR. RATE CALC 92.0 mL/min (>90); GLUCOSE,RANDOM 92.0 mg/dL (70-105); SODIUM SERUM 140.0 mmol/L (136-145); TOTAL PROTEIN, SERUM 7.7 g/dL (6.0-8.3); UREA NITROGEN, BLOOD 12.0 mg/dL (7-18)
--- NOTE | 2025-05-02 17:25 | NUR ---
LABS DR CALVIN NOTIFIED OF LAB RESULTS.
--- NOTE | 2025-05-02 17:38 | HP ---
HISTORY OF PRESENT ILLNESS: The patient came to the Emergency Room complaining of severe right lower quadrant pain for the last 4 days, increasingly worse. The patient had no known drug allergies. PAST MEDICAL HISTORY: Hypertension, dyslipidemia, gastritis, and pancreatitis. MEDICATIONS: As indicated in the chart. ALLERGIES: None. REVIEW OF SYSTEMS: No fever, chills, seizures, loss of consciousness. No chest pain or palpitations. No cough, wheezing, or rhonchi. No nausea or vomiting. No dysuria, urgency, or frequency. No hematemesis, melena, hematuria, or rectal bleeding. No rashes, petechiae or ecchymosis. No hallucinations, delusions. No suicidal ideations. PHYSICAL EXAMINATION: GENERAL: She is currently awake, alert, oriented to person, place, not in distress. VITAL SIGNS: Vital signs in the chart. HEENT: Normocephalic and atraumatic. LUNGS: Clear to auscultation. HEART: S1, S2 are distant. ABDOMEN: Soft, nontender. No masses. EXTREMITIES: No clubbing, cyanosis. No edema. LABORATORY DATA: WBC count was 11.7, hemoglobin 12.7, platelets 307. Sodium 137, potassium 4.2, BUN 14, creatinine 0.8, bilirubin 0.5, lipase 28. Urinalysis within normal limits. CT scan of the abdomen shows ileocecal junction and terminal ileum wall thickening with surrounding fat stranding and a 1.7 x 1.6 impacted fecalith in the ileocecal junction suggestive of ileocolitis. There is a 1.6 x 1.4 cm necrotic lymph node in the left lumbar region. Mild free fluid in the peritoneal. Hepatomegaly of 19.2 cm. ASSESSMENT AND PLAN: * Right lower quadrant pain with an abnormal CT scan, possible ileocolitis/appendicitis. Consultation with surgeon Dr. Atkins was made. The patient went for surgery. She has had laparoscopic enterolysis. * Abdominal pain secondary to ileocolitis. Continue current antibiotics. * Status post laparoscopic enterolysis. Continue recommendations by Surgery. * Hypertension. Continue current treatment. * Continue with current antibiotic therapy. * Plan to discharge when cleared by Surgery. DOS: 05/02/2025 TID: [id number] RECEIPT: [id number] [facility]
[2025-05-02] MEDS: PoTASSium chloRIDE 20MEQ ER 20 MEQ ERTAB PO ONE (18:48)
== END 2025-05-02 19:16 | disposition home or self-care (01) ==
LOC: EDH 08:53 → INTOOBSV 13:27 → EDHIP 13:27 → 3CH 19:30
PROVIDERS: ADMIT Internal Medicine; ATTEND Internal Medicine
DX: K37 Unspecified appendicitis (principal); K38.1 Appendicular concretions; I10 Essential (primary) hypertension; K66.0 Peritoneal adhesions (postprocedural) (postinfection); E78.1 Pure hyperglyceridemia; K59.09 Other constipation; K85.90 Acute pancreatitis without necrosis or infection, unspecified; Z90.711 Acquired absence of uterus with remaining cervical stump; Z79.899 Other long term (current) drug therapy; Z98.890 Other specified postprocedural states
CPT/HCPCS: 44970; 96365; 96366 ×2; 96375; 99285; 80053 ×2; 83690; 85025; 81003; 81001; 36415 ×2; 88304; 74177; 85027; J7030; J7120 ×2; A4344; J3010 ×2; J0330; J2270; J3490 ×2; J2003; J2250; J2704; J2405; J2710; J2543 ×3; J0665 ×2; J1885; Q9967; A4649 ×3; A4930 ×2; A4223; A4222; A4600; G0378 ×3